=== PATIENT | male | born 1980 | race American Indian/Alaskan Native ===

== ENCOUNTER 2018-03-17 12:35 | Day surgery (SDC) | payer OTHER ==
[~2018-03-17 12:35] MED LIST: NACL 0.9% 1000 ML 1,000 ML IV SCH
--- NOTE | 2018-03-17 15:41 | Anesthesia Day of Surgery ---
Anesthesia Day of Surgery - Day of Surgery Patient Examined: Yes Patient H&P Reviewed: Yes Patient is NPO: Yes
--- NOTE | 2018-03-17 15:41 | Anesthesia Consultation ---
Anesthesia Consult and Med Hx Date of service: 03/17/18 - Airway Anesthetic Teeth Evaluation: Good ROM Head & Neck: Adequate Mental/Hyoid Distance: Adequate Mallampati Class: Class II Intubation Access Assessment: Probably Good - Pulmonary Exam CTA: Yes - Cardiac Exam Cardiac Exam: RRR - Pre-Operative Health Status ASA Pre-Surgery Classification: ASA2 Proposed Anesthetic Plan: MAC - Pulmonary Hx Smoking: Yes (social) - Cardiovascular System Hx Hypertension: Yes
[2018-03-17] MEDS ORDERED: XYLOCAINE MPF 2% ONE (15:42)
--- NOTE | 2018-03-17 15:50 | Anesthesia Consultation ---
Anesthesia Consult and Med Hx Date of service: 03/17/18 - Airway Anesthetic Teeth Evaluation: Good ROM Head & Neck: Adequate Mental/Hyoid Distance: Adequate Mallampati Class: Class III Intubation Access Assessment: Possibly Difficult - Pulmonary Exam CTA: Yes - Cardiac Exam Cardiac Exam: RRR - Pre-Operative Health Status ASA Pre-Surgery Classification: ASA2 Proposed Anesthetic Plan: MAC - Pulmonary Hx Smoking: Yes (social) - Cardiovascular System Hx Hypertension: Yes
[2018-03-17] MEDS ORDERED: WATER FOR IRRIG STERILE IR ONE ×2 (16:01→20:06)
[2018-03-17] MEDS ORDERED: WATER FOR IRRIG STERILE ONE (16:02)
[2018-03-17] MEDS ORDERED: NORMODYNE IV ONE (16:22)
[2018-03-17] MEDS ORDERED: DIPRIVAN 10 MG/ML IV ONE (16:23)
--- NOTE | 2018-03-17 16:27 | Operative Report ---
Operative Report Operative Report: Date of procedure: 03/17/2018 Procedure: Colonoscopy with Snare polypectomy. Attending physician: Sanjay Flynn MD Dialer: Sanjay Flynn MD Indication: Patient is a 37-year-old male who presents for colonoscopy because pf a recent history of blood in stool and also progressive constipation and personal history of colon polyps. This colonoscopy serves to evaluate patient so that treatment may be directed based on the findings. Consent: Informed consent was obtained after advising the patient and family regarding nature of this procedure, its indications, potential benefits as well as possible complications including but not limited to bleeding perforation and adverse reaction to medication, infection as well as other cardiopulmonary complications. An informed written and verbal consent was then obtained after due opportunity was provided for questions and answers. Monitoring: Patient was monitored continuously with pulse oximetry and electrocardiographic recordings as well as blood pressure recordings. Vital signs remained stable throughout this procedure with no untoward events. Preoperative assessment: Patient was assessed immediately prior to this procedure for capacity to tolerate monitored anesthesia care and moderate sedation as well as general anesthesia. Patient's ASA classification is 2, Mallampati class is 2, Hyomental distance is 3. Instrument: coRankn video colonoscope Medications: Propofol given intravenously in divided doses. For details please refer to anesthesia records. Description of procedure: Patient was placed in the left lateral decubitus position after achieving sedation, a digital rectal examination was performed following which the colonoscope was introduced into the anal verge and advanced to the cecum which was identified by the cecal valve, the appendiceal orifice, as well as by the cecal strap and direct transillumination. The colonoscope was subsequently withdrawn with careful inspection of all mucosal surfaces. Patient tolerated this procedure well and was subsequently taken to the recovery room. The following findings were noted. Findings: Preparation was very poor. Patient has substantial retained stool seen in the cecum and ascending colon transverse colon and descending colon. The cecum otherwise did not have any other gross mucosal abnormalities as also the ascending colon. In the transverse colon, pajamas semi-pedunculated 1.5 cm to 2 cm polyp which was removed by snare electrocautery and retrieved. The colon otherwise had some stool with no other gross abnormalities seen. The sigmoid colon and rectum appeared normal. On retroflex view of the anal verge, patient had internal hemorrhoids. Impression: Colonoscopic preparation Transverse colon polyp status post snare polypectomy Internal hemorrhoids. Internal hemorrhoids. Plan: Follow pathology report. High-fiber diet. Repeat colonoscopy in 3-6 months because of the transverse colon polyp and poor prep.
--- NOTE | 2018-03-17 16:27 | Discharge Summary ---
Short Stay Discharge Plan Activity: advance as tolerated Weight Bearing Status: Weight Bear as Tolerated Diet: regular Follow up with: OG BENOIT MD [Primary Care Provider] - 7 Days
[2018-03-17 16:51] VITALS: BP 154/99
== END 2018-03-17 12:36 | disposition home or self-care (01) ==
LOC: GIO 12:35
PROVIDERS: ATTEND Internal Medicine Gastroenterology
DX: D12.3 Benign neoplasm of transverse colon (principal); K64.8 Other hemorrhoids; K59.00 Constipation, unspecified; I10 Essential (primary) hypertension; F17.210 Nicotine dependence, cigarettes, uncomplicated; Z79.899 Other long term (current) drug therapy; Z88.0 Allergy status to penicillin; Z88.8 Allergy status to other drugs, medicaments and biological substances; F17.200 Nicotine dependence, unspecified, uncomplicated; Z86.010 Personal history of colon polyps; Z80.0 Family history of malignant neoplasm of digestive organs
CPT/HCPCS: 45385; 88305; J2704; J7030

== ENCOUNTER 2018-08-18 10:02 | Day surgery (SDC) | payer OTHER ==
[~2018-08-18 10:02] MED LIST changes: +WATER FOR IRRIG STERILE IR ONE; +WATER FOR IRRIG STERILE ONE
[2018-08-18] MEDS ORDERED: DIPRIVAN 10 MG/ML IV ONE ×3 (10:51→11:28)
[2018-08-18] MEDS ORDERED: WATER FOR IRRIG STERILE ONE (12:00)
--- NOTE | 2018-08-18 12:15 | Discharge Summary ---
Short Stay Discharge Plan Activity: advance as tolerated Weight Bearing Status: Weight Bear as Tolerated Diet: regular Follow up with: OG BENOIT MD [Primary Care Provider] - 7 Days
--- NOTE | 2018-08-18 12:15 | Operative Report ---
Operative Report Operative Report: Date of procedure: 08/18/2018 Procedure: Colonoscopy with snare polypectomy, submucosal injection, with ablation and multiple hot biopsy polypectomies, also Hemoclip application. 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 Patient had colonoscopy about a year ago with transverse colon polyp and significant retained stool. Previously, he had polyps in 2009. This colonoscopy serves to evaluate patient so that treatment may be directed based on the findings. Consent: Informed consent was obtained after advising the patient and family regarding nature of this procedure, its indications, potential benefits as well as possible complications including but not limited to bleeding perforation and adverse reaction to medication, infection as well as other cardiopulmonary complications. An informed written and verbal consent was then obtained after due opportunity was provided for questions and answers. Monitoring: Patient was monitored continuously with pulse oximetry and electrocardiographic recordings as well as blood pressure recordings. Vital signs remained stable throughout this procedure with no untoward events. Preoperative assessment: Patient was assessed immediately prior to this procedure for capacity to tolerate monitored anesthesia care and moderate sedation as well as general anesthesia. Patient's ASA classification is 2, Mallampati class is 2, Hyomental distance is 3. Instrument: nookedn video colonoscope Medications: Propofol given intravenously in divided doses. For details please refer to anesthesia records. Description of procedure: Patient was placed in the left lateral decubitus position after achieving sedation, a digital rectal examination was performed following which the colonoscope was introduced into the anal verge and advanced to the cecum which was identified by the ileocecal valve, the appendiceal orifice, as well as by the cecal strap and direct transillumination. The colonoscope was subsequently withdrawn with careful inspection of all mucosal surfaces. Patient tolerated this procedure well and was subsequently taken to the recovery room. The following findings were noted. Findings: The cecum was normal. Patient has substantial retained thick liquid stool in the ascending colon transverse, descending colon and sigmoid colon. In the transverse colon, patient had a sessile 8 mm polyp which was elevated with submucosal injection of saline and removed by snare electrocautery and retrieved. The descending colon was normal. Patient had a diminutive polyp in the sigmoid colon which was ablated. In the rectum, patient had multiple diminutive polyps were ablated. Patient also had 6 diminutive flat polyps that were removed by hot biopsy polypectomy and retrieved. . The preparation was adequate. On the retroflex view at the anal verge, patient had internal hemorrhoids. Impression: Multiple rectal polyps status post hot biopsy polypectomy and abla tion. Diminutive sigmoid colon polyp status post ablation. Transverse colon polyp status post submucosal injection and snare polypectomy. Retained stool. Internal hemorrhoids Plan: Follow pathology report High-fiber diet. Repeat colonoscopy in 3 years.
[2018-08-18 12:36] VITALS: BP 132/75
== END 2018-08-18 10:03 | disposition home or self-care (01) ==
LOC: GIO 10:02
PROVIDERS: ATTEND Internal Medicine Gastroenterology
DX: K62.1 Rectal polyp (principal); K63.5 Polyp of colon; K64.8 Other hemorrhoids; F17.210 Nicotine dependence, cigarettes, uncomplicated; K21.9 Gastro-esophageal reflux disease without esophagitis; I10 Essential (primary) hypertension; Z79.899 Other long term (current) drug therapy; Z88.0 Allergy status to penicillin; Z88.8 Allergy status to other drugs, medicaments and biological substances
CPT/HCPCS: 45381; 45384; 45385; 45388; 88305; J2704; J7030